=== PATIENT | male | born 1985 | race Caucasian/White ===

== ENCOUNTER 2020-03-16 17:06 | Inpatient (IN) | payer OTHER ==
[~2020-03-16] VITALS: Ht 172.7 cm; Wt 88.4 kg
[2020-03-16 19:07] LABS: HEMOGLOBIN 13.1 gm/dl (14.0-17.5); RED BLOOD COUNT 3.7 M/UL (4.20-5.50); WHITE BLOOD COUNT 4.3 K/UL (4.5-11.0)
[2020-03-16 20:00] LABS: BUN/CREATININE RATIO 12 (0-10)
[2020-03-17] MEDS ORDERED: KEFLEX CAP 500500 MG PO (00:39)
[2020-03-17 05:38] LABS: BUN/CREATININE RATIO 10 (0-10)
[2020-03-18 07:20] LABS: HEMOGLOBIN 10.5 gm/dl (14.0-17.5); RED BLOOD COUNT 2.94 M/UL (4.20-5.50); WHITE BLOOD COUNT 5.5 K/UL (4.5-11.0)
[2020-03-18 08:09] LABS: BUN/CREATININE RATIO 12 (0-10)
[2020-03-18 10:12] LABS: HBSAG SCREEN Negative (Negative); HEP A AB, IGM Negative (Negative); HEP B CORE AB, IGM Negative (Negative); HEP C VIRUS AB <0.1 (0.0-0.9)
[2020-03-19 04:30] LABS: HEMOGLOBIN 10.3 gm/dl (14.0-17.5); RED BLOOD COUNT 2.94 M/UL (4.20-5.50)
[2020-03-19 04:32] LABS: WHITE BLOOD COUNT 1.9 K/UL (4.5-11.0)
[2020-03-19 04:57] LABS: BUN/CREATININE RATIO 15 (0-10)
[2020-03-20 05:34] LABS: HEMOGLOBIN 9.5 gm/dl (14.0-17.5); RED BLOOD COUNT 2.69 M/UL (4.20-5.50)
[2020-03-20 06:19] LABS: BUN/CREATININE RATIO 21 (0-10)
[2020-03-20 07:08] LABS: WHITE BLOOD COUNT 7.5 K/UL (4.5-11.0)
[2020-03-21 05:06] LABS: RED BLOOD COUNT 1.94 M/UL (4.20-5.50); WHITE BLOOD COUNT 10.1 K/UL (4.5-11.0)
[2020-03-21 05:07] LABS: HEMOGLOBIN 6.6 gm/dl (14.0-17.5)
[2020-03-21 05:15] LABS: BUN/CREATININE RATIO 25 (0-10)
[2020-03-21 11:02] LABS: HEMOGLOBIN 8.3 gm/dl (14.0-17.5); WHITE BLOOD COUNT 10.8 K/UL (4.5-11.0)
[2020-03-21 11:08] LABS: RED BLOOD COUNT 2.45 M/UL (4.20-5.50)
[2020-03-22 03:55] LABS: HEMOGLOBIN 8.3 gm/dl (14.0-17.5); RED BLOOD COUNT 2.43 M/UL (4.20-5.50); WHITE BLOOD COUNT 11.4 K/UL (4.5-11.0)
[2020-03-23 04:56] LABS: BUN/CREATININE RATIO 39 (0-10)
[2020-03-23 05:06] LABS: HEMOGLOBIN 7.5 gm/dl (14.0-17.5); RED BLOOD COUNT 2.31 M/UL (4.20-5.50)
[2020-03-23 05:08] LABS: WHITE BLOOD COUNT 21.8 K/UL (4.5-11.0)
[2020-03-24 05:45] LABS: HEMOGLOBIN 8.6 gm/dl (14.0-17.5); RED BLOOD COUNT 2.66 M/UL (4.20-5.50); WHITE BLOOD COUNT 19.9 K/UL (4.5-11.0)
[2020-03-24 05:59] LABS: BUN/CREATININE RATIO 50 (0-10)
[2020-03-24 10:15] LABS: PROTEIN S, FREE 65 % (57-157); PROTEIN S, TOTAL 39 % (60-150)
[2020-03-25 04:48] LABS: HEMOGLOBIN 9.6 gm/dl (14.0-17.5); WHITE BLOOD COUNT 18.7 K/UL (4.5-11.0)
[2020-03-25 05:08] LABS: BUN/CREATININE RATIO 65 (0-10)
[2020-03-25 05:14] LABS: RED BLOOD COUNT 2.99 M/UL (4.20-5.50)
[2020-03-26 06:02] LABS: HEMOGLOBIN 9.8 gm/dl (14.0-17.5); RED BLOOD COUNT 3.11 M/UL (4.20-5.50); WHITE BLOOD COUNT 21.5 K/UL (4.5-11.0)
[2020-03-26 06:19] LABS: BUN/CREATININE RATIO 70 (0-10)
[2020-03-27 02:40] LABS: HEMOGLOBIN 9.1 gm/dl (14.0-17.5); RED BLOOD COUNT 2.88 M/UL (4.20-5.50); WHITE BLOOD COUNT 20.5 K/UL (4.5-11.0)
[2020-03-27 02:51] LABS: BUN/CREATININE RATIO 71 (0-10)
[2020-03-28 02:40] LABS: HEMOGLOBIN 8.5 gm/dl (14.0-17.5); RED BLOOD COUNT 2.49 M/UL (4.20-5.50); WHITE BLOOD COUNT 16.5 K/UL (4.5-11.0)
[2020-03-28 03:38] LABS: BUN/CREATININE RATIO 66 (0-10)
[2020-03-29 04:18] LABS: BUN/CREATININE RATIO 57 (0-10)
[2020-03-29 10:09] LABS: CREATININE, URINE 44.1 mg/dL (Not Estab.)
[2020-03-29 11:05] LABS: HEMOGLOBIN 9.6 gm/dl (14.0-17.5)
[2020-03-29 11:06] LABS: RED BLOOD COUNT 2.98 M/UL (4.20-5.50); WHITE BLOOD COUNT 22.9 K/UL (4.5-11.0)
[2020-03-30 03:31] LABS: HEMOGLOBIN 8.8 gm/dl (14.0-17.5); WHITE BLOOD COUNT 20.5 K/UL (4.5-11.0)
[2020-03-30 03:32] LABS: RED BLOOD COUNT 2.67 M/UL (4.20-5.50)
[2020-03-30 04:14] LABS: BUN/CREATININE RATIO 50 (0-10)
[2020-03-31 03:12] LABS: BUN/CREATININE RATIO 51 (0-10)
[2020-03-31 04:11] LABS: HEMOGLOBIN 9.5 gm/dl (14.0-17.5); WHITE BLOOD COUNT 22.5 K/UL (4.5-11.0)
[2020-03-31 04:15] LABS: RED BLOOD COUNT 2.98 M/UL (4.20-5.50)
[2020-04-01 02:20] LABS: HEMOGLOBIN 8.7 gm/dl (14.0-17.5); WHITE BLOOD COUNT 18.4 K/UL (4.5-11.0)
[2020-04-01 02:24] LABS: RED BLOOD COUNT 2.68 M/UL (4.20-5.50)
[2020-04-01 02:40] LABS: BUN/CREATININE RATIO 50 (0-10)
--- NOTE | 2020-04-01 11:05 | NUR ---
SPOKE WITH DR LANDA REGARDING PATIENTS TUBE FEEDING BEING HELD DUE TO EXCESS RESIDUAL. HE THINKS THAT SPEECH THERAPY CAN WORK WITH THE PATIENT TODAY AND TRY TO FEED THE PATIENT SO WE CAN GIVE HIM A DIET. I SPOKE WITH DR TYSON AND SHE AGREES THAT THE PATIENT CAN WORK WITH SPEECH THERAPY TODAY. SPEECH THERAPY MADE AWARE THAT IT IS OKAY FOR THE PATIENT TO PROCEED WITH TRYING TO BE FED.
[2020-04-02 03:23] LABS: HEMOGLOBIN 8.9 gm/dl (14.0-17.5); RED BLOOD COUNT 2.74 M/UL (4.20-5.50)
[2020-04-02 03:27] LABS: WHITE BLOOD COUNT 12.4 K/UL (4.5-11.0)
[2020-04-02 04:17] LABS: BUN/CREATININE RATIO 43 (0-10)
--- NOTE | 2020-04-04 00:35 | NUR ---
CALLED X-RAY AT 0015 TO CHECK ON STATUS OF PRELIMINARY REPORT OF CHEST X RAY. X-RAY TECH STATED THAT IS HAS NOT BEEN READ YET. WILL TUBE REPORT WHEN READ.
[2020-04-04 02:54] LABS: HEMOGLOBIN 8.8 gm/dl (14.0-17.5); RED BLOOD COUNT 2.77 M/UL (4.20-5.50)
[2020-04-04 03:06] LABS: WHITE BLOOD COUNT 22.4 K/UL (4.5-11.0)
[2020-04-04 03:18] LABS: BUN/CREATININE RATIO 30 (0-10)
--- NOTE | 2020-04-04 03:29 | NUR ---
1ST PRELIM FOR CHEST X-RAY TO VERIFY PLACEMENT OF NG TUBE CAME BACK AROUND 010. CONFIRMING THAT NG TUBE WAS OUT OF PLACE. CALLED MD AND SHE ORDERED TO TAKE IT OUT AND REPLACE WITH NEW NG TUBE AND OBTAIN CHEST X RAY. NG TUBE REPLACED AND CHEST X-RAY OBTAINED STAT. PRELIM CAME BACK AROUND 0255 AND I NOTIFIED MD THAT X-RAY STATES THAT THE TIP OF THE NG TUBE IS IN THE STOMACH. MD AWARE AND ORDERED FOR TUBE FEED TO BE RESTARTED.
[2020-04-06 04:09] LABS: HEMOGLOBIN 7.8 gm/dl (14.0-17.5)
[2020-04-06 04:14] LABS: RED BLOOD COUNT 2.4 M/UL (4.20-5.50); WHITE BLOOD COUNT 9.5 K/UL (4.5-11.0)
[2020-04-06 04:35] LABS: BUN/CREATININE RATIO 30 (0-10)
[2020-04-08 02:35] LABS: HEMOGLOBIN 7.1 gm/dl (14.0-17.5); RED BLOOD COUNT 2.26 M/UL (4.20-5.50); WHITE BLOOD COUNT 10.9 K/UL (4.5-11.0)
[2020-04-08 03:02] LABS: BUN/CREATININE RATIO 28 (0-10)
[2020-04-09 02:22] LABS: HEMOGLOBIN 7.7 gm/dl (14.0-17.5); RED BLOOD COUNT 2.56 M/UL (4.20-5.50); WHITE BLOOD COUNT 12.4 K/UL (4.5-11.0)
[2020-04-09 02:39] LABS: BUN/CREATININE RATIO 33 (0-10)
[2020-04-09] MEDS ORDERED: LOPRESSOR 25 MG25 MG NG (10:50)
[2020-04-09] MEDS ORDERED: TYLENOL ELIXIR PO (10:50)
[2020-04-09] MEDS ORDERED: HYDROCODON-ACE1 EAC2 PO (10:50)
[2020-04-09] MEDS ORDERED: VITAMIN B-121000 MC3 PO (10:50)
[2020-04-09] MEDS ORDERED: PROTONIX 40 MG40 M1 PO (10:50)
[2020-04-09] MEDS ORDERED: K-DUR TAB 20 M20 MEQ PO (10:50)
[2020-04-09] MEDS ORDERED: MEROPENEM500 MG IV (10:55)
[2020-04-09] MEDS ORDERED: MICAFUNGIN100 MG INJ (10:55)
[2020-04-10 02:59] LABS: BUN/CREATININE RATIO 38 (0-10)
[2020-04-10 03:24] LABS: HEMOGLOBIN 7.3 gm/dl (14.0-17.5); RED BLOOD COUNT 2.51 M/UL (4.20-5.50)
[2020-04-11 08:13] LABS: WHITE BLOOD COUNT 11.5 K/UL (4.5-11.0)
[2020-04-11 08:15] LABS: HEMOGLOBIN 9.6 gm/dl (14.0-17.5); RED BLOOD COUNT 3.26 M/UL (4.20-5.50)
[2020-04-12 03:53] LABS: HEMOGLOBIN 8.9 gm/dl (14.0-17.5); RED BLOOD COUNT 3.01 M/UL (4.20-5.50)
[2020-04-12 04:22] LABS: BUN/CREATININE RATIO 30 (0-10)
[2020-04-14 02:59] LABS: HEMOGLOBIN 8.8 gm/dl (14.0-17.5); RED BLOOD COUNT 2.96 M/UL (4.20-5.50); WHITE BLOOD COUNT 12.2 K/UL (4.5-11.0)
[2020-04-14 03:16] LABS: BUN/CREATININE RATIO 26 (0-10)
[2020-04-15 07:07] LABS: BUN/CREATININE RATIO 33 (0-10)
[2020-04-15] MEDS ORDERED: MEROPENEM500 MG IV (10:39)
[2020-08-18] MEDS ORDERED: Clindamycin PO (08:17)
[2020-09-11] MEDS ORDERED: HYDROCODON-ACE1 EAC4 PO (11:02)
[2020-09-11] MEDS ORDERED: PANTOPRAZOLE SO20 MG PO (11:03)
[2020-09-11] MEDS ORDERED: ALEVE220 M1 PO (11:03)
== END 2020-04-15 18:45 | disposition other institution (70) | DRG 329 ==
LOC: ER1 17:06 → CDU 21:18 → ZEROF 21:18 → CDU 21:18 → CCU 03-17 21:02 → MED SURG 4 03-18 11:27 → PROG CARE 03-18 11:27 → CCU 03-18 11:27 → PROG CARE 03-26 15:00 → MED SURG 4 04-10 18:09
PROVIDERS: Family Medicine; Hospitalist; Internal Medicine; Internal Medicine Infectious Disease; Internal Medicine Nephrology; Internal Medicine Pulmonary Disease; Physician Assistant; Surgery; ADMIT Internal Medicine
PROC: 0DN80ZZ Release Small Intestine, Open Approach (ICD-10-PCS; 2020-03-17)
PROC: 0D1B0Z4 Bypass Ileum to Cutaneous, Open Approach (ICD-10-PCS; 2020-03-17)
PROC: 0DBH0ZZ Excision of Cecum, Open Approach (ICD-10-PCS; principal; 2020-03-17 15:30)
PROC: 3E033XZ Introduction of Vasopressor into Peripheral Vein, Percutaneous Approach (ICD-10-PCS; 2020-03-18)
PROC: 3E02340 Introduction of Influenza Vaccine into Muscle, Percutaneous Approach (ICD-10-PCS; 2020-03-18)
PROC: 5A1955Z Respiratory Ventilation, Greater than 96 Consecutive Hours (ICD-10-PCS; 2020-03-19)
PROC: 0BH17EZ Insertion of Endotracheal Airway into Trachea, Via Natural or Artificial Opening (ICD-10-PCS; 2020-03-19)
PROC: 0JQ80ZZ Repair Abdomen Subcutaneous Tissue and Fascia, Open Approach (ICD-10-PCS; 2020-04-02)
DX: K56.609 Unspecified intestinal obstruction, unspecified as to partial versus complete obstruction (principal); E43 Unspecified severe protein-calorie malnutrition; J96.01 Acute respiratory failure with hypoxia; R65.21 Severe sepsis with septic shock; R18.8 Other ascites; T81.31XA Disruption of external operation (surgical) wound, not elsewhere classified, initial encounter; N17.9 Acute kidney failure, unspecified; G93.40 Encephalopathy, unspecified; E87.3 Alkalosis; D61.818 Other pancytopenia; E87.6 Hypokalemia; D50.9 Iron deficiency anemia, unspecified; Z20.822 Contact with and (suspected) exposure to COVID-19; D72.829 Elevated white blood cell count, unspecified; R19.7 Diarrhea, unspecified; K76.9 Liver disease, unspecified; I95.9 Hypotension, unspecified; D69.6 Thrombocytopenia, unspecified; K56.50 Intestinal adhesions [bands], unspecified as to partial versus complete obstruction; E88.09 Other disorders of plasma-protein metabolism, not elsewhere classified; N50.89 Other specified disorders of the male genital organs; Z23 Encounter for immunization; Z88.0 Allergy status to penicillin; I50.9 Heart failure, unspecified
CPT/HCPCS: ECHO; 31500; 36415; 36430; 36600; 71045; 80048; 80053; 80074; 80076; 80202; 81001; 82043; 82140; 82533; 82570; 82607; 82728; 82746; 82803; 82962; 83540; 83550; 83605; 83735; 83880; 83930; 83935; 84100; 84132; 84156; 84295; 84439; 84443; 84466; 85007; 85025; 85027; 85049; 85305; 85384; 85610; 85652; 85730; 86140; 86850; 86900; 86901; 86920; 87040; 90471; 92526; 92610; 93005; 93306; 94002; 94003; 94760; 96365; 96375; 97110; 97110-GP-CQ; 97162; 97164; 97166; 97167; 97530; 97530-GP-CQ; 99285; A6212; C1751; C9113; G0378; J0610; J1100; J1120; J1170; J1205; J1335; J1650; J1720; J1940; J1956; J2001; J2060; J2185; J2248; J2250; J2270; J2370; J2405; J2543; J2550; J2704; J2710; J2765; J3010; J3370; J3420; J3475; J3480; J7030; J7040; J7050; J7070; J7120; P9016; P9035; P9037; P9047; Q9967; U0002

== ENCOUNTER → 2020-08-18 | Day surgery (SDC) | payer OTHER ==
[~2020-08-18] MED LIST: ALEVE220 M1 PO; Clindamycin PO; HYDROCODON-ACE1 EAC2 PO; HYDROCODON-ACE1 EAC4 PO; K-DUR TAB 20 M20 MEQ PO; KEFLEX CAP 500500 MG PO; LOPRESSOR 25 MG25 MG NG; MEROPENEM500 MG IV; MICAFUNGIN100 MG INJ; PANTOPRAZOLE SO20 MG PO; PROTONIX 40 MG40 M1 PO; TYLENOL ELIXIR PO; VITAMIN B-121000 MC3 PO
== END | disposition home or self-care (01) ==
LOC: OR 07:23
PROVIDERS: Internal Medicine Gastroenterology
PROC: 0DB Gastrointestinal System, Excision (ICD-10-PCS; 2020-08-18)
PROC: 0DBE8ZX Excision of Large Intestine, Via Natural or Artificial Opening Endoscopic, Diagnostic (ICD-10-PCS; principal; 2020-08-18 12:00)
DX: K52.9 Noninfective gastroenteritis and colitis, unspecified (principal); K63.3 Ulcer of intestine; D64.9 Anemia, unspecified; Z88.0 Allergy status to penicillin; Z20.822 Contact with and (suspected) exposure to COVID-19; Z79.899 Other long term (current) drug therapy; Z93.2 Ileostomy status
CPT/HCPCS: J2001; J2704; J7040

== ENCOUNTER → 2020-09-11 | Outpatient (CLI) | payer OTHER ==
[~2020-09-11] MED LIST changes: +BENTYL 20MG TAB20 MG PO; +FLAGYL500 MG PO; +LEVOFLOXACIN500 MG PO; +LODINE CAP 300300 MG PO; +ZOFRAN ODT 4 MG4 MG PO
[2020-09-11 11:19] LABS: HEMOGLOBIN 14.9 gm/dl (14.0-17.5); RED BLOOD COUNT 5.48 M/UL (4.20-5.50); WHITE BLOOD COUNT 5.2 K/UL (4.5-11.0)
[2020-09-11 11:38] LABS: BUN/CREATININE RATIO 12 (0-10)
== END ==
LOC: OPSV2 10:00
PROVIDERS: Anesthesiology
DX: Z01.812 Encounter for preprocedural laboratory examination (principal)
CPT/HCPCS: 36415; 80048; 85025

== ENCOUNTER 2020-09-29 05:52 | Inpatient (IN) | payer OTHER ==
[~2020-09-29] VITALS: Ht 172.7 cm; Wt 70.3 kg
[~2020-09-29 05:52] MED LIST changes: -BENTYL 20MG TAB20 MG PO; -FLAGYL500 MG PO; -LEVOFLOXACIN500 MG PO; -LODINE CAP 300300 MG PO; -ZOFRAN ODT 4 MG4 MG PO
[2020-09-30 04:21] LABS: HEMOGLOBIN 11.5 gm/dl (14.0-17.5); RED BLOOD COUNT 4.23 M/UL (4.20-5.50); WHITE BLOOD COUNT 7.7 K/UL (4.5-11.0)
[2020-09-30 04:44] LABS: BUN/CREATININE RATIO 9 (0-10)
[2020-10-02 05:06] LABS: HEMOGLOBIN 13.6 gm/dl (14.0-17.5); RED BLOOD COUNT 4.96 M/UL (4.20-5.50); WHITE BLOOD COUNT 4.9 K/UL (4.5-11.0)
[2020-10-02 05:14] LABS: BUN/CREATININE RATIO 12 (0-10)
[2020-10-03 06:41] LABS: WHITE BLOOD COUNT 3.9 K/UL (4.5-11.0)
[2020-10-03 06:45] LABS: HEMOGLOBIN 11.5 gm/dl (14.0-17.5); RED BLOOD COUNT 4.22 M/UL (4.20-5.50)
[2020-10-03 07:01] LABS: BUN/CREATININE RATIO 15 (0-10)
[2020-10-04 06:13] LABS: HEMOGLOBIN 11.3 gm/dl (14.0-17.5); RED BLOOD COUNT 4.09 M/UL (4.20-5.50); WHITE BLOOD COUNT 3.6 K/UL (4.5-11.0)
[2020-10-04 06:33] LABS: BUN/CREATININE RATIO 8 (0-10)
[2020-10-05 04:30] LABS: HEMOGLOBIN 11.4 gm/dl (14.0-17.5); RED BLOOD COUNT 4.31 M/UL (4.20-5.50)
[2020-10-05 04:37] LABS: WHITE BLOOD COUNT 4.7 K/UL (4.5-11.0)
[2020-10-05 04:53] LABS: BUN/CREATININE RATIO 8 (0-10)
[2020-10-06 07:03] LABS: HEMOGLOBIN 11.6 gm/dl (14.0-17.5); RED BLOOD COUNT 4.32 M/UL (4.20-5.50); WHITE BLOOD COUNT 4.3 K/UL (4.5-11.0)
[2020-10-06 07:39] LABS: BUN/CREATININE RATIO 7 (0-10)
[2020-10-08] MEDS ORDERED: HYDROCODON-ACE1 EAC2 PO (13:56)
== END 2020-10-08 18:20 | disposition home or self-care (01) | DRG 330 ==
LOC: OR 05:52 → MED SURG 4 14:07
PROVIDERS: ADMIT Surgery
PROC: 0DBB0ZZ Excision of Ileum, Open Approach (ICD-10-PCS; principal; 2020-09-29 08:45)
DX: Z43.2 Encounter for attention to ileostomy (principal); K56.7 Ileus, unspecified; K31.89 Other diseases of stomach and duodenum; K76.0 Fatty (change of) liver, not elsewhere classified; F41.9 Anxiety disorder, unspecified; I07.1 Rheumatic tricuspid insufficiency; D64.9 Anemia, unspecified; Z98.890 Other specified postprocedural states; Z88.0 Allergy status to penicillin; Z90.49 Acquired absence of other specified parts of digestive tract
CPT/HCPCS: 36415; 80048; 85025; 97116; 97116-GP-CQ; 97162; 97530-GP-CQ; J1100; J1170; J1650; J1885; J2250; J2270; J2370; J2405; J2550; J2704; J3010; J7030; J7120

== ENCOUNTER 2020-12-07 00:41 | Emergency (ER) | payer OTHER ==
[2020-12-07 01:10] LABS: HEMOGLOBIN 15.4 gm/dl (14.0-17.5); RED BLOOD COUNT 5.67 M/UL (4.20-5.50)
[2020-12-07 01:44] LABS: BUN/CREATININE RATIO 13 (0-10)
[2020-12-07] MEDS ORDERED: ZOFRAN ODT 4 MG4 MG PO (04:46)
[2020-12-07] MEDS ORDERED: BENTYL 20MG TAB20 MG PO (04:46)
[2020-12-07] MEDS ORDERED: LEVOFLOXACIN500 MG PO (04:46)
[2020-12-07] MEDS ORDERED: FLAGYL500 MG PO (04:46)
[2020-12-07] MEDS ORDERED: LODINE CAP 300300 MG PO (05:28)
== END 2020-12-07 07:55 | disposition home or self-care (01) ==
LOC: ER1 00:41
PROVIDERS: Physician Assistant
DX: R10.84 Generalized abdominal pain (principal); R11.2 Nausea with vomiting, unspecified; Z88.0 Allergy status to penicillin
CPT/HCPCS: 80053; 81001; 82550; 82553; 83605; 83690; 84484; 85025; 87086; 96374; 96375; 96376; 99284; J1885; J1956; J2405; J7030; Q9967

== ENCOUNTER 2020-12-12 04:52 | Emergency (ER) | payer OTHER ==
[~2020-12-12 04:52] MED LIST changes: +BENTYL 20MG TAB20 MG PO; +FLAGYL500 MG PO; +LEVOFLOXACIN500 MG PO; +LODINE CAP 300300 MG PO; +ZOFRAN ODT 4 MG4 MG PO
[2020-12-12 05:24] LABS: HEMOGLOBIN 14.9 gm/dl (14.0-17.5); RED BLOOD COUNT 5.44 M/UL (4.20-5.50); WHITE BLOOD COUNT 6.6 K/UL (4.5-11.0)
[2020-12-12 05:36] LABS: BUN/CREATININE RATIO 8 (0-10)
== END 2020-12-12 06:00 | disposition home or self-care (01) ==
LOC: ER1 04:52
PROVIDERS: Emergency Medicine
DX: K80.50 Calculus of bile duct without cholangitis or cholecystitis without obstruction (principal); Z88.0 Allergy status to penicillin
CPT/HCPCS: 80053; 85025; 96374; 96375; 99284; J2270; J2405; J7030

== ENCOUNTER 2020-12-14 23:52 | Emergency (ER) | payer OTHER ==
[2020-12-15 00:58] LABS: HEMOGLOBIN 13.9 gm/dl (14.0-17.5); RED BLOOD COUNT 5.11 M/UL (4.20-5.50); WHITE BLOOD COUNT 6.3 K/UL (4.5-11.0)
[2020-12-15 01:13] LABS: BUN/CREATININE RATIO 6 (0-10)
[2020-12-15] MEDS ORDERED: PERCOCET 5-3251 EACH PO (02:06)
== END 2020-12-15 02:39 | disposition home or self-care (01) ==
LOC: ER1 23:52
DX: K02.9 Dental caries, unspecified (principal); K04.02 Irreversible pulpitis
CPT/HCPCS: 80053; 82150; 83690; 85025; 96372; 99282; J1885

== ENCOUNTER → 2021-01-15 | Outpatient (CLI) | payer OTHER ==
[~2021-01-15] MED LIST changes: +IBU600 MG PO; +PERCOCET 5-3251 EACH PO; +SENNA S TABLET1 EACH PO
== END ==
LOC: OPSV2 12:30
DX: Z01.811 Encounter for preprocedural respiratory examination (principal); Z87.01 Personal history of pneumonia (recurrent); K81.0 Acute cholecystitis
CPT/HCPCS: 71046

== ENCOUNTER → 2021-01-19 | Day surgery (SDC) | payer OTHER | END | disposition home or self-care (01) | LOC: OR 05:20 | DX: K80.10 Calculus of gallbladder with chronic cholecystitis without obstruction (principal); K66.0 Peritoneal adhesions (postprocedural) (postinfection); J18.9 Pneumonia, unspecified organism; K76.0 Fatty (change of) liver, not elsewhere classified; F41.9 Anxiety disorder, unspecified; Z88.0 Allergy status to penicillin; Z79.1 Long term (current) use of non-steroidal anti-inflammatories (NSAID); Z79.891 Long term (current) use of opiate analgesic | CPT/HCPCS: C1729; J1100; J1885; J2001; J2250; J2405; J2704; J2710; J3010; J7030; J7120 ==